=== PATIENT | male | born 1930 | race Caucasian/White ===

== ENCOUNTER 2016-08-26 10:23 | Outpatient (CLI) | payer MEDICARE, OTHER | END 2016-08-26 10:24 | disposition home or self-care (01) | DX: E78.2 Mixed hyperlipidemia (principal); Z79.899 Other long term (current) drug therapy; I48.91 Unspecified atrial fibrillation ==

== ENCOUNTER 2017-02-26 17:07 | Emergency (ER) | payer MEDICARE, OTHER ==
[2017-02-26 17:23] VITALS: BP 142/74
--- NOTE | 2017-02-26 17:31 | ED Physician Documentation ---
PD HPI Fall - Stated complaint Stated Complaint: HEAD PX - Chief complaint Chief Complaint: General - History obtained from History obtained from: Patient - History of Present Illness Mechanism of injury: Lost balance (sitting on rolling chair, and bent over to plug something in wall socket, the chair rolled and he fell backward, struck back of head. Briefly saw stars but no LOC. Feeling okay after that, but had been cautioned about injuries while on blood thinners.) Fall distance: Sitting position Where injury occurred: Home Timing - onset: Today Injury(ies) location: Head Associated symptoms: No: LOC, AMS, Neck pain, Weakness, Paresthesias Worsens with: Palpation Contributing factors: Anticoagulated Similar symptoms before: Has not had sx before Recently seen: Not recently seen Review of Systems Eyes: denies: Loss of vision, Decreased vision Nose: denies: Rhinorrhea / runny nose, Congestion Throat: denies: Sore throat Cardiac: denies: Chest pain / pressure, Palpitations Respiratory: denies: Dyspnea, Cough GI: denies: Abdominal Pain, Nausea, Vomiting Skin: reports: Abrasion (s) Neurologic: denies: Focal weakness, Numbness, Confused, Altered mental status, LOC PD PAST MEDICAL HISTORY - Past Medical History Cardiovascular: Hypertension, High cholesterol, Atrial fibrillation Respiratory: Sleep apnea Neuro: CVA, TIA Endocrine/Autoimmune: None GI: Other : None HEENT: Chronic vision loss, Macular degeneration, Chronic hearing loss Psych: None Musculoskeletal: Osteoarthritis, Fatigue Derm: Other - Past Surgical History Past Surgical History: Yes Cardiovascular: Other HEENT: Cataracts, Tonsil/Adenoidectomy Derm: Skin cancer surgery - Present Medications Home Medications: Ambulatory Orders Medication Instructions Recorded Confirmed Acyclovir 400 mg PO BID 10/12/12 04/21/16 Metoprolol Succinate 25 mg PO BID 10/12/12 04/21/16 Pravastatin Sodium 40 mg PO QPM 10/12/12 04/23/16 - Allergies Allergies/Adverse Reactions: Allergies Allergy/AdvReac Type Severity Reaction Status Date / Time NSAIDS (Non-Steroidal Allergy Unknown Rash Verified 04/21/16 10:19 Anti-Inflamma piroxicam Allergy Unknown Rash Verified 04/21/16 10:19 - Social History Does the pt smoke?: No Smoking Status: Former smoker Does the pt drink ETOH?: Yes Does the pt have substance abuse?: No - Immunizations Immunizations are current?: Yes PD ED PE NORMAL - Vitals Vital signs reviewed: Yes - General General: Alert and oriented X 3, No acute distress, Well developed/nourished - HEENT HEENT: PERRL, EOMI, Pharynx benign, Dentition benign, Other (back of head with abrasion) - Neck Neck: Supple, no meningeal sign, No bony TTP, No adenopathy - Respiratory Respiratory: Clear bilaterally, Other (no chestwall tenderness) - Abdomen Abdomen: Soft, Non tender - Derm Derm: Normal color, Warm and dry - Extremities Extremities: No deformity, No tenderness to palpate, Normal ROM s pain - Neuro Neuro: Alert and oriented X 3, bisque grader 2-12 intact, No motor deficit, No sensory deficit, Normal speech, Other Results - Vitals Vitals: Oxygen O2 Source Room air - Rads (name of study) head CT Radiology: Prelim report reviewed (normal) PD MEDICAL DECISION MAKING - ED course Complexity details: reviewed results (head CT normal. He looks well and vigorous. No sutures needed at wound. ), considered differential, d/w patient Departure - Departure Disposition: 01 Home, Self Care Clinical Impression: Anticoagulant long-term use Accidental fall from chair Qualifiers: Encounter type: initial encounter Qualified Code(s): W07.XXXA - Fall from chair , initial encounter Head contusion Qualifiers: Encounter type: initial encounter Contusion of head detail: scalp Qualified Code(s): S00.03XA - Contusion of scalp, initial encounter Condition: Stable Record reviewed to determine appropriate education?: Yes Follow-Up: Patel Cam MD [Primary Care Provider] - Comments: Your head CT appears normal right now. Recheck if you develop significant headaches or other concerning symptoms. Tylenol if needed for mild headaches. Usual activity is okay. Continue usual medications. Discharge Date/Time: 02/26/17 18:48
[2017-02-26] MEDS: ACETAMINOPHEN 325 MG TABLET PO STA ×2 (17:42→17:43)
[2017-02-26] MEDS ORDERED: ACETAMINOPHEN 325 MG TABLET PO ONE (17:45)
--- NOTE | 2017-02-26 18:34 | CT Preliminary Report ---
Exam: CT Head W/O IMPRESSION: Generalized age-related cortical atrophic changes without evidence of acute intracranial abnormality.See above. [facility] SITE ID: [id number]
--- NOTE | 2017-02-26 18:36 | CT Report ---
EXAM: CT HEAD EXAM DATE: 02/26/2017 05:56 PM. CLINICAL HISTORY: Fell accidental, struck head; on Eliquis. COMPARISON: Head CT 05/01/2016. TECHNIQUE: Multiaxial CT images were obtained from the foramen magnum to the vertex. IV contrast: Non e. Reformats: Coronal. In accordance with CT protocol optimization, one or more of the following dose reduction techniques w ere utilized for this exam: automated exposure control, adjustment of mA and/or KV based on patient s ize, or use of iterative reconstructive technique. FINDINGS: Parenchyma: No intraparenchymal hemorrhage. No evidence of mass, midline shift, or CT findings of acu te infarction. Shin-white differentiation is distinct. Small chronic infarcts at the right medial fro ntal lobe and left basal ganglia are again noted. Extraaxial Spaces: Normal for age. No subdural or epidural collections identified. The previously see n subdural collections have resolved. Ventricles: The ventricles and cortical sulci are enlarged, consistent with age-related tissue loss. Sinuses: Mild right maxillary sinus mucosal thickening. Minimal ethmoid sinus mucosal thickening. Bones: No evidence of fracture or calvarial defect. Other: Diffuse chronic microangiopathic white matter changes are evident. IMPRESSION: Generalized age-related cortical atrophic changes without evidence of acute intracranial abnormality.See above. [facility] Referring Provider Line: [phone] SITE ID: [id number]
== END 2017-02-26 18:48 | disposition home or self-care (01) ==
LOC: ED 17:07
DX: S00.03XA Contusion of scalp, initial encounter (principal); W07.XXXA Fall from chair, initial encounter; I48.91 Unspecified atrial fibrillation; Z79.01 Long term (current) use of anticoagulants; I10 Essential (primary) hypertension; E78.00 Pure hypercholesterolemia, unspecified; G47.30 Sleep apnea, unspecified; M19.90 Unspecified osteoarthritis, unspecified site; Z86.73 Personal history of transient ischemic attack (TIA), and cerebral infarction without residual deficits; Z87.891 Personal history of nicotine dependence
CPT/HCPCS: 70450; 99283; A9270

== ENCOUNTER 2017-10-12 08:46 | Outpatient (CLI) | payer MEDICARE, OTHER ==
[2017-10-12 09:33] LABS: BASOPHILS # (AUTO) 0.1 10^3/uL (0.0-0.1); BASOPHILS % (AUTO) 1.5 %; EOSINOPHILS # (AUTO) 0.3 10^3/uL (0.0-0.7); EOSINOPHILS % (AUTO) 5.6 %; HGB - HEMOGLOBIN 14.4 g/dL (14.0-18.0); LYMPHOCYTES # (AUTO) 1.6 10^3/uL (1.5-3.5); LYMPHOCYTES % (AUTO) 26.7 %; MEAN CORPUSCULAR HEMOGLOBIN 32.3 pg (27.0-31.0); MEAN CORPUSCULAR HGB CONC 33.1 g/dL (32.0-36.0); MEAN CORPUSCULAR VOLUME 97.4 fL (80.0-94.0); MEAN PLATELET VOLUME 8.1 fL (7.4-11.4); MONOCYTES # (AUTO) 0.7 10^3/uL (0.0-1.0); MONOCYTES % (AUTO) 11.3 %; NEUTROPHILS # (AUTO) 3.2 10^3/uL (1.5-6.6); NEUTROPHILS % (AUTO) 54.9 %; PLT - PLATELET COUNT 124 10^3/uL (130-450); RED BLOOD COUNT 4.47 10^6/uL (4.70-6.10); RED CELL DISTRIBUTION WIDTH 14.1 % (12.0-15.0); WHITE BLOOD COUNT 5.9 x10^3/uL (4.8-10.8)
[2017-10-12 09:49] LABS: ALBUMIN 3.8 g/dL (3.2-5.5); ALKALINE PHOSPHATASE 97 IU/L (42-121); ALT ALANINE AMINOTRANSFERASE 17 IU/L (10-60); AST ASPARTATE AMINOTRANSFERASE 29 IU/L (10-42); BILIRUBIN,TOTAL 0.5 mg/dL (0.2-1.0); BUN - BLOOD UREA NITROGEN 23 mg/dL (6-20); CALCIUM 8.8 mg/dL (8.5-10.3); CARBON DIOXIDE - CO2 29 mmol/L (21-32); CHLORIDE 102 mmol/L (101-111); CHOL/HDL RATIO 2.7 (<5.0); CHOLESTEROL 122 mg/dL; CREATININE 1.3 mg/dL (0.6-1.2); GFR - MDRD 52 (>89); GLUCOSE 106 mg/dL (70-100); HDL CHOLESTEROL 45 mg/dL; LDL CHOLESTEROL,CALCULATED 59 mg/dL; LDL/HDL RATIO 1.3 (<3.6); SODIUM 138 mmol/L (135-145); TOTAL PROTEIN 7.5 g/dL (6.7-8.2); VLDL CHOLESTEROL 18 mg/dL
[2017-10-12 09:54] LABS: HB2 TOTAL 16.2 g/dL; HEMOGLOBIN A1C 0.56 g/dL; HEMOGLOBIN A1C % 5.3 % (4.6-6.2)
== END 2017-10-12 08:47 | disposition home or self-care (01) ==
LOC: LAB 08:46
PROVIDERS: ATTEND Internal Medicine
DX: R73.9 Hyperglycemia, unspecified (principal); I25.10 Atherosclerotic heart disease of native coronary artery without angina pectoris; I48.91 Unspecified atrial fibrillation; I10 Essential (primary) hypertension
CPT/HCPCS: 36415; 80053; 80061; 83036; 83721; 85025

== ENCOUNTER 2018-01-11 14:18 | Outpatient (CLI) | payer MEDICARE, OTHER ==
[2018-01-11 15:24] LABS: BASOPHILS % (AUTO) 0.4 %; EOSINOPHILS # (AUTO) 0.2 10^3/uL (0.0-0.7); EOSINOPHILS % (AUTO) 3.2 %; HGB - HEMOGLOBIN 14.5 g/dL (14.0-18.0); LYMPHOCYTES # (AUTO) 1.7 10^3/uL (1.5-3.5); LYMPHOCYTES % (AUTO) 31.7 %; MEAN CORPUSCULAR HEMOGLOBIN 32.4 pg (27.0-31.0); MEAN CORPUSCULAR HGB CONC 32.8 g/dL (32.0-36.0); MEAN CORPUSCULAR VOLUME 98.6 fL (80.0-94.0); MEAN PLATELET VOLUME 8.9 fL (7.4-11.4); MONOCYTES # (AUTO) 0.6 10^3/uL (0.0-1.0); MONOCYTES % (AUTO) 11.3 %; NEUTROPHILS # (AUTO) 2.8 10^3/uL (1.5-6.6); NEUTROPHILS % (AUTO) 53.4 %; PLT - PLATELET COUNT 119 10^3/uL (130-450); RED BLOOD COUNT 4.47 10^6/uL (4.70-6.10); RED CELL DISTRIBUTION WIDTH 13.9 % (12.0-15.0); WHITE BLOOD COUNT 5.2 x10^3/uL (4.8-10.8)
[2018-01-11 15:27] LABS: ALBUMIN 3.9 g/dL (3.2-5.5); BILIRUBIN,TOTAL 1.2 mg/dL (0.2-1.0); CREATININE 1.3 mg/dL (0.6-1.2)
== END 2018-01-11 14:19 | disposition home or self-care (01) ==
LOC: LAB 14:18
PROVIDERS: ATTEND Internal Medicine
DX: I48.91 Unspecified atrial fibrillation (principal)
CPT/HCPCS: 36415; 80053; 84443; 85025

== ENCOUNTER 2018-01-18 09:18 | Outpatient (CLI) | payer MEDICARE, OTHER ==
[2018-01-18 17:40] LABS: ALBUMIN 3.7 g/dL (3.2-5.5); ALBUMIN/GLOBULIN RATIO 0.9 (1.0-2.2); BILIRUBIN,TOTAL 1.3 mg/dL (0.2-1.0); CALCIUM 9.2 mg/dL (8.5-10.3); CREATININE 1.3 mg/dL (0.6-1.2); TOTAL PROTEIN 7.6 g/dL (6.7-8.2)
== END 2018-01-18 09:19 | disposition home or self-care (01) ==
LOC: LAB.R 09:18
PROVIDERS: ATTEND Internal Medicine
DX: R89.9 Unspecified abnormal finding in specimens from other organs, systems and tissues (principal); Z79.899 Other long term (current) drug therapy
CPT/HCPCS: 80053; 82977

== ENCOUNTER 2018-02-01 14:59 | Outpatient (CLI) | payer MEDICARE, OTHER ==
--- NOTE | 2018-02-01 17:18 | Ultrasound Report ---
Procedure Date: 02/01/2018 Accession Number: [id number] / [id number] Procedure: US - Abdomen Limited CPT Code: FULL RESULT: EXAM: ABDOMEN ULTRASOUND LIMITED, RUQ EXAM DATE: 02/01/2018 04:07 PM. CLINICAL HISTORY: Abnormal labs. COMPARISON: Chest radiograph 06/13/2006. TECHNIQUE: Real-time scanning was performed with static images obtained. FINDINGS: Liver: Normal in size and echotexture. 12.9 cm. Main portal vein flow: Hepatopetal. Gallbladder: No sonographic Wellington's sign. Under distended with borderline wall thickening measuring up to 3.5 mm. A large mobile shadowing stone is present measuring up to 23 mm. Biliary System: CBD measures 3.5 mm. No intrahepatic or extrahepatic ductal dilatation. Other: Limited submitted images of the right kidney are unremarkable, measuring 9.9 cm longitudinally without hydronephrosis. At least small right pleural effusion present. IMPRESSION: 1. Cholelithiasis with borderline gallbladder wall thickening but no sonographic Wellington sign to strongly suggest acute cholecystitis. Consider surgery consultation and/or nuclear medicine HIDA scan for further evaluation. 2. At least small right pleural effusion. [facility]
== END 2018-02-01 15:00 | disposition home or self-care (01) ==
LOC: DI 14:59
PROVIDERS: ATTEND Internal Medicine
DX: K80.20 Calculus of gallbladder without cholecystitis without obstruction (principal); R74.8 Abnormal levels of other serum enzymes; J90 Pleural effusion, not elsewhere classified
CPT/HCPCS: 76705

== ENCOUNTER 2018-02-09 14:04 | Outpatient (CLI) | payer MEDICARE, OTHER | END 2018-02-09 14:05 | disposition home or self-care (01) | LOC: DI 14:04 | PROVIDERS: ATTEND Internal Medicine Cardiovascular Disease | DX: I48.0 Paroxysmal atrial fibrillation (principal); J90 Pleural effusion, not elsewhere classified | CPT/HCPCS: 93306 ==

== ENCOUNTER 2018-02-11 12:00 | Outpatient (CLI) | payer MEDICARE, OTHER ==
[2018-02-11] MEDS ORDERED: SINCALIDE 5 MCG VIAL ONE (14:07)
[2018-02-11] MEDS ORDERED: SINCALIDE 1.6 MCG in SODIUM CHLORIDE 0.9% 50 ML IV ONE (15:59)
--- NOTE | 2018-02-11 16:55 | Nuclear Medicine Report ---
Reason: ABNORMAL LABS Procedure Date: 02/11/2018 Accession Number: [id number] / [id number] Procedure: NM - Hepatobiliary HIDA w/ Rx CPT Code: FULL RESULT: EXAM: HEPATOBILIARY SCAN WITH CCK/KINEVAC ADMINISTRATION EXAM DATE: 02/11/2018 04:00 PM. CLINICAL HISTORY: ABNORMAL LABS. COMPARISON: None. TECHNIQUE: Following the intravenous administration of 4.7 mCi of Tc99m Mebrofenin, a hepatobiliary scan was done centered on the liver and gallbladder in multiple sequential images and projections. Following the intravenous administration of 1.6 mcg of CCK/ Kinevac over the course of approximately 60 minutes, dynamic imaging was done and the gallbladder ejection fraction was calculated. FINDINGS: Normal extraction of tracer from the blood pool indicating normal hepatocellular function. The liver size and shape is grossly within normal limits. Appearance of tracer in the biliary tree as early as 5-10 minutes, within normal limits. Appearance of tracer in the gallbladder as early as 10-15 minutes, within normal limits, with good progression of filling throughout the remainder of the initial hour. Appearance of tracer in the small bowel as early as 15-20 minutes, within normal limits. With CCK administration, the gallbladder demonstrates an effective contraction. The gallbladder ejection fraction is calculated to be 91%, well above the lower limit of normal of 38% for a 60-minute injection. No evidence of enteric reflux into the stomach. No significant collection of tracer remaining in the common bile duct by the end of the study. IMPRESSION: 1. No scintigraphic evidence of acute cholecystitis. 2. Patent common bile duct. 3. Gallbladder ejection fraction is in the normal range. [facility]
== END 2018-02-11 12:01 | disposition home or self-care (01) ==
LOC: DI 12:00
PROVIDERS: ATTEND Internal Medicine
DX: R89.9 Unspecified abnormal finding in specimens from other organs, systems and tissues (principal)
CPT/HCPCS: 78227; J7040

== ENCOUNTER 2018-03-10 12:18 | Outpatient (CLI) | payer MEDICARE, OTHER | END 2018-03-10 12:19 | disposition home or self-care (01) | LOC: RT 12:18 | PROVIDERS: ATTEND Internal Medicine Cardiovascular Disease | DX: I48.91 Unspecified atrial fibrillation (principal) | CPT/HCPCS: 93005 ==

== ENCOUNTER 2018-03-18 11:18 | Outpatient (CLI) | payer MEDICARE, OTHER ==
[2018-03-18 13:12] LABS: ALBUMIN/GLOBULIN RATIO 1.1 (1.0-2.2); BILIRUBIN,TOTAL 1.4 mg/dL (0.2-1.0); CALCIUM 9.1 mg/dL (8.5-10.3); CREATININE 1.8 mg/dL (0.6-1.2); TOTAL PROTEIN 7.6 g/dL (6.7-8.2)
== END 2018-03-18 11:19 | disposition home or self-care (01) ==
LOC: LAB.R 11:18
PROVIDERS: ATTEND Internal Medicine
DX: R89.9 Unspecified abnormal finding in specimens from other organs, systems and tissues (principal)
CPT/HCPCS: 80053

== ENCOUNTER 2018-04-01 11:32 | Outpatient (CLI) | payer MEDICARE, OTHER ==
--- NOTE | 2018-04-01 13:09 | XRAY Report ---
Reason: WEIGHT LOSS Procedure Date: 04/01/2018 Accession Number: [id number] / [id number] Procedure: XR - Chest 2 View X-Ray CPT Code: 63263 FULL RESULT: EXAM: Chest 2 View X-Ray DATE: 04/01/2018 11:55 AM CLINICAL HISTORY: WEIGHT LOSS COMPARISON: None. TECHNIQUE: 2 views. FINDINGS: Lungs/Pleura: No focal opacities evident. No pneumothorax. Left CP angle blunting, either chronic scarring or small effusion. Right CP angle well-maintained.. Hyperexpanded volumes with flattening of the diaphragms. Mediastinum: Heart and mediastinal contours are unremarkable. Other: Mild degenerative change in the spine. Aortic graft material in place. IMPRESSION: Left CP angle blunting, question chronic scarring versus pleural fluid. Otherwise no potentially acute findings. [facility]
== END 2018-04-01 11:33 | disposition home or self-care (01) ==
LOC: DI 11:32
PROVIDERS: ATTEND Internal Medicine
DX: R63.4 Abnormal weight loss (principal)
CPT/HCPCS: 71046

== ENCOUNTER 2018-04-08 10:45 | Outpatient (CLI) | payer MEDICARE, OTHER ==
[2018-04-08] MEDS ORDERED: IOPAMIDOL-300 50 ML VIAL ONE (11:22)
--- NOTE | 2018-04-08 16:23 | CT Report ---
Reason: WEIGHT LOSS Procedure Date: 04/08/2018 Accession Number: [id number] / [id number] Procedure: CT - Abdomen/Pelvis W/O CPT Code: FULL RESULT: EXAM: CT ABDOMEN AND PELVIS EXAM DATE: 04/08/2018 12:18 PM. CLINICAL HISTORY: Weight loss. COMPARISONS: Correlation with abdominal ultrasound 02/01/2018. TECHNIQUE: Routine helical CT imaging was performed through the abdomen and pelvis. IV contrast: None. Enteric contrast: Positive oral contrast. Reconstructions: Coronal and sagittal. In accordance with CT protocol optimization, one or more of the following dose reduction techniques were utilized for this exam: automated exposure control, adjustment of mA and/or KV based on patient size, or use of iterative reconstructive technique. FINDINGS: Lung Bases: Trace left pleural effusion. Medial left lower lobe and posterior right lower lobe atelectasis and/or scarring. Liver: Normal. No masses. Gallbladder/Bile Ducts: 2.2 cm gallstone. Gallbladder is partially distended with diffuse mild wall prominence. Spleen: Normal. Pancreas: Normal. Adrenal Glands: Normal. Kidneys: Normal. No masses or hydronephrosis. Peritoneal Cavity/Bowel: Aortocaval adenopathy measuring up to 1.2 cm short axis. Increased number of aortocaval and left periaortic lymph nodes. Extensive diverticulosis. Portions of colon are limited in evaluation by CT due to underdistention. No dilated bowel. Oral contrast reached the proximal to mid sigmoid colon by time of exam. The appendix is well visualized and normal. Pelvic Organs: Normal. The bladder and visualized pelvic organs are within normal limits. Vasculature: Prior endovascular repair of abdominal aorta with bifurcated stent graft extending into the iliac arteries. No adjacent fluid collection. Hernia sac in the distal abdominal aorta measures up to 4.8 cm AP on sagittal series by 4.1 cm transverse on coronal series. Convex right and convex anterior tortuosity of mid to distal abdominal aorta. Distal thoracic aortic aneurysm measuring 4.2 cm diameter on axial image 8. Bones: Prominent lumbar spine degenerative changes. Other: None. IMPRESSION: 1. Aortocaval and left periaortic retroperitoneal adenopathy. Recommend clinical correlation. 2. Prior endovascular repair of abdominal aortic aneurysm with bifurcated stent graft. Note is also made of aneurysmal dilatation of descending thoracic aorta near diaphragm. 3. Extensive diverticulosis. No convincing inflammation to suggest diverticulitis. 4. Cholelithiasis with mild diffuse gallbladder wall prominence. Similar findings on ultrasound 02/01/2018. Consider follow-up ultrasound if clinically warranted. [facility]
== END 2018-04-08 10:46 | disposition home or self-care (01) ==
LOC: DI 10:45
PROVIDERS: ATTEND Internal Medicine
DX: R59.0 Localized enlarged lymph nodes (principal); I71.2 Thoracic aortic aneurysm, without rupture; K57.90 Diverticulosis of intestine, part unspecified, without perforation or abscess without bleeding; K80.20 Calculus of gallbladder without cholecystitis without obstruction
CPT/HCPCS: 74176; Q9967

== ENCOUNTER 2018-05-04 11:06 | Outpatient (CLI) | payer MEDICARE, OTHER ==
[2018-05-04] MEDS ORDERED: IOVERSOL 320 100 ML VIAL IVP ONE ×2 (12:01→13:38)
[2018-05-04 12:06] LABS: CREATININE 1.7 mg/dL (0.6-1.2)
--- NOTE | 2018-05-04 13:55 | CT Report ---
Reason: RETROPERITONEAL LYMPHADENOPATHY Procedure Date: 05/04/2018 Accession Number: [id number] / [id number] Procedure: CT - Chest W/ CPT Code: FULL RESULT: EXAM: CT CHEST EXAM DATE: 05/04/2018 12:39 PM. CLINICAL HISTORY: RETROPERITONEAL LYMPHADENOPATHY. COMPARISONS: ABDOMEN/PELVIS W/O 04/08/2018 12:21 PM CHEST 2 VIEW 04/01/2018 11:51 AM. TECHNIQUE: Routine helical CT imaging was performed through the chest. IV contrast: 50 mL Optiray 320. Reconstructions: Coronal and sagittal. In accordance with CT protocol optimization, one or more of the following dose reduction techniques were utilized for this exam: automated exposure control, adjustment of mA and/or KV based on patient size, or use of iterative reconstructive technique. FINDINGS: Exam timing was performed for the portal venous phase, however, there is significant reflux of contrast into the IVC and hepatic veins with contrast essentially in the pulmonary arterial phase. This is most often seen with right heart failure. Vasculature: The thoracic aorta is atherosclerotic. Apparent thickening and intramural hematoma at the level of the diaphragm is retrospectively also seen on the CT abdomen pelvis, maximum caliber of 4.4 cm for length of 5.5 cm at the thoracoabdominal transition/suprarenal descending aorta; aneurysm with mural hematoma. Lungs/Pleura: No nodules, bronchial thickening, consolidation, or edema. Pulmonary vasculature is normal. No pericardial or pleural effusion. No pneumothorax. Mediastinum: No adenopathy or masses. The heart and great vessels are within normal caliber with the aforementioned limitation. Calcific coronary artery disease, LAD predominance. Bones: No aggressive osseous lesions. Visualized Abdomen: Cholelithiasis. Other: None. IMPRESSION: No evidence of primary thoracic malignancy and no thoracic lymphadenopathy. 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 Suspect heart failure. [facility] The above findings of aortic aneurysm, suspected heart failure and no significant thoracic lymphadenopathy were discussed with Patel Cam by Dr. Martin Vela at 13:53 hrs on 05/04/18.
== END 2018-05-04 11:07 | disposition home or self-care (01) ==
LOC: LAB 11:06 → DI 11:07
PROVIDERS: ATTEND Internal Medicine
DX: I71.2 Thoracic aortic aneurysm, without rupture (principal)
CPT/HCPCS: 36415; 71260; 82565; Q9967

== ENCOUNTER 2018-07-01 12:08 | Outpatient (CLI) | payer MEDICARE, OTHER ==
[2018-07-01 18:37] LABS: ALBUMIN 3.9 g/dL (3.2-5.5); BILIRUBIN,TOTAL 1.2 mg/dL (0.2-1.0); CALCIUM 9.1 mg/dL (8.5-10.3); CREATININE 1.6 mg/dL (0.6-1.2)
== END 2018-07-01 23:59 | disposition home or self-care (01) ==
LOC: LAB.R 12:08
PROVIDERS: ATTEND Internal Medicine
DX: R89.9 Unspecified abnormal finding in specimens from other organs, systems and tissues (principal)
CPT/HCPCS: 80053

== ENCOUNTER 2018-09-21 16:13 | Outpatient (CLI) | payer MEDICARE, OTHER ==
[2018-09-21 16:41] LABS: BASOPHILS % (AUTO) 0.2 %; EOSINOPHILS # (AUTO) 0.3 10^3/uL (0.0-0.7); HGB - HEMOGLOBIN 15.7 g/dL (14.0-18.0); LYMPHOCYTES # (AUTO) 1.7 10^3/uL (1.5-3.5); MEAN CORPUSCULAR HEMOGLOBIN 33.8 pg (27.0-31.0); MEAN CORPUSCULAR HGB CONC 32.9 g/dL (32.0-36.0); MEAN CORPUSCULAR VOLUME 102.8 fL (80.0-94.0); MEAN PLATELET VOLUME 8.3 fL (7.4-11.4); MONOCYTES # (AUTO) 0.6 10^3/uL (0.0-1.0); MONOCYTES % (AUTO) 11.5 %; NEUTROPHILS # (AUTO) 2.6 10^3/uL (1.5-6.6); NEUTROPHILS % (AUTO) 50.3 %; PLT - PLATELET COUNT 108 10^3/uL (130-450); RED BLOOD COUNT 4.64 10^6/uL (4.70-6.10); RED CELL DISTRIBUTION WIDTH 13.2 % (12.0-15.0); WHITE BLOOD COUNT 5.2 x10^3/uL (4.8-10.8)
[2018-09-21 17:01] LABS: ALBUMIN 3.8 g/dL (3.2-5.5); BILIRUBIN,TOTAL 0.9 mg/dL (0.2-1.0); CALCIUM 9.5 mg/dL (8.5-10.3); CREATININE 1.3 mg/dL (0.6-1.2); TOTAL PROTEIN 7.7 g/dL (6.7-8.2)
[2018-09-21 17:11] LABS: THYROID STIMULATING HORMONE 1.52 uIU/mL (0.34-5.60)
[2018-09-21 17:15] LABS: FREE T4 (FREE THYROXINE) 0.81 ng/dL (0.58-1.64)
== END 2018-09-21 16:14 | disposition home or self-care (01) ==
LOC: LAB 16:13
PROVIDERS: ATTEND Family Medicine
DX: R63.4 Abnormal weight loss (principal); I48.91 Unspecified atrial fibrillation; I10 Essential (primary) hypertension
CPT/HCPCS: 36415; 80053; 84439; 84443; 84481; 85025

== ENCOUNTER 2018-09-23 09:22 | Outpatient (CLI) | payer MEDICARE, OTHER | END 2018-09-23 09:23 | disposition home or self-care (01) | LOC: DI 09:22 | PROVIDERS: ATTEND Internal Medicine Cardiovascular Disease | DX: I11.0 Hypertensive heart disease with heart failure (principal); I50.9 Heart failure, unspecified; I08.1 Rheumatic disorders of both mitral and tricuspid valves | CPT/HCPCS: 93306 ==

== ENCOUNTER 2019-03-04 18:04 | Emergency (ER) | payer MEDICARE, OTHER ==
--- NOTE | 2019-03-04 18:59 | ED Physician Documentation ---
PD HPI LOWER EXT INJURY - Stated complaint Stated Complaint: LT [place] INJ - Chief complaint Chief Complaint: Ext Problem - History obtained from History obtained from: Patient - History of Present Illness PD HPI LOW EXT INJURY LOCATION: Left Type of injury: Other Where injury occurred: Home (Unsure) Timing - onset: Today Timing - duration: Hours (4) Timing - details: Abrupt onset Pain level now: 0 Improved by: Nothing Associated symptoms: Numbness (Chronic due to peripheral vascular disease). No: Weakness, Swelling Contributing factors: Anticoagulated (Takes a baby aspirin daily) Recently seen: Not recently seen - Additional information Additional information: This is an 88-year-old man who presents with complaints that he scraped the front of his left leg on some furniture around 3:00 this afternoon. He was anyone aware that he had done anything he looked down and just had a sock full of blood. He rinsed it and put a bandage on it but it kept bleeding. He does have some chronic neuropathy and numbness of the legs due to peripheral vascular disease. He is currently only taking a baby aspirin daily as an anticoagulant. He denies numbness or tingling down into his toes. Denies pain. Patient has a history of A. fib successfully treated with the watchman procedure, he also has an aortic stent and has had bypass surgery into both of his lower extremities. Review of Systems Skin: reports: Abrasion (s) Musculoskeletal: denies: Extremity pain, Extremity swelling Neurologic: reports: Numbness PD PAST MEDICAL HISTORY - Past Medical History Past Medical History: Yes Cardiovascular: Hypertension, High cholesterol, Atrial fibrillation Respiratory: Sleep apnea Neuro: None Endocrine/Autoimmune: None GI: Other : None HEENT: Chronic vision loss, Macular degeneration, Chronic hearing loss Psych: None Musculoskeletal: Osteoarthritis, Fatigue Derm: Other - Past Surgical History Past Surgical History: Yes Cardiovascular: Other (aortic stent and vascular bypass LEs bilat) HEENT: Cataracts, Tonsil/Adenoidectomy Derm: Skin cancer surgery - Present Medications Home Medications: Ambulatory Orders Medication Instructions Recorded Confirmed Acyclovir 400 mg PO BID 10/12/12 04/21/16 Metoprolol Succinate 25 mg PO BID 10/12/12 04/21/16 Pravastatin Sodium 40 mg PO QPM 10/12/12 04/23/16 - Allergies Allergies/Adverse Reactions: Allergies Allergy/AdvReac Type Severity Reaction Status Date / Time NSAIDS (Non-Steroidal Allergy Unknown Rash Verified 03/04/19 18:15 Anti-Inflamma piroxicam Allergy Unknown Rash Verified 03/04/19 18:15 - Social History Does the pt smoke?: No Smoking Status: Never smoker Does the pt drink ETOH?: Yes Does the pt have substance abuse?: No - Immunizations Immunizations are current?: Yes - POLST Patient has POLST: No PD ED PE NORMAL - Vitals Vital signs reviewed: Yes - General General: Alert and oriented X 3, No acute distress, Well developed/nourished - HEENT HEENT: Atraumatic, PERRL - Cardiac Cardiac: RRR, Other (There is a palpable dorsalis pedis pulse in left foot.) - Respiratory Respiratory: No respiratory distress - Derm Derm: Other (There is a avulsion of skin overlying the left proximal distal tibia. This measures approximately 4 to 5 mm wide and about 1 to 1-1/2 cm long. No active bleeding.) - Extremities Extremities: No deformity, Normal ROM s pain, No edema - Neuro Neuro: Alert and oriented X 3, No motor deficit, Normal speech - Psych Psych: Normal mood, Normal affect Results - Vitals Vitals: Oxygen O2 Source Room air PD MEDICAL DECISION MAKING - ED course Complexity details: d/w patient ED course: This abrasion is deep and the skin that is remaining is not a viable. Wound was cleansed here and a dressing applied with slight pressure. He is instructed on wound care. Minimize standing and weightbearing and follow-up with his doctor next week for recheck. He states understanding. Departure - Departure Disposition: 01 Home, Self Care Clinical Impression: Abrasion of leg, left Qualifiers: Encounter type: initial encounter Qualified Code(s): S80.812A - Abrasion, left lower leg, initial encounter Condition: Good Instructions: ED Abrasion Follow-Up: Jonathan Colby MD [Primary Care Provider] - Comments: You may wash the wound with soap and water. Apply antibiotic ointment. Stay off of your feet as much as possible for the next several days keeping the leg elevated. It is okay to pump the feet back and forth to keep the blood moving. Keep the wound covered and then Catalino wrap may help apply a little bit of pressure to keep the bleeding under control. Watch closely for signs of infection and follow-up immediately if you speedy spreading redness, develop a fever or have purulent drainage. Follow-up with your primary care provider next week for reevaluation. Discharge Date/Time: 03/04/19 19:37
[2019-03-04] MEDS ORDERED: BACITRACIN ZINC OINT 14 GM TOP STA (19:23)
[2019-03-04 19:37] VITALS: BP 118/79
== END 2019-03-04 19:37 | disposition home or self-care (01) ==
LOC: ED 18:04
DX: S80.812A Abrasion, left lower leg, initial encounter (principal); W22.03XA Walked into furniture, initial encounter; I10 Essential (primary) hypertension
CPT/HCPCS: 99282; 99284